=== PATIENT | female | born 1995 | race Caucasian/White ===

== ENCOUNTER 2019-02-17 17:47 | Emergency (ER) | payer BC ==
--- NOTE | 2019-02-17 20:26 | EDM.PDOC ---
ED HPI GENERAL MEDICAL PROBLEM - General Chief Complaint: Genitourinary Problem Stated Complaint: KIDNEY INFECTION NOT GETTING BETTER SENT BY [facility] Time Seen by Provider: 02/17/19 19:03 Source of Information: Reports: Patient, Significant Other (Boyfriend) History Limitations: Reports: No Limitations - History of Present Illness INITIAL COMMENTS - FREE TEXT/NARRATIVE: Ms. Valdez is a very pleasant 23-year-old woman with no significant past medical history, who states that she developed bloody, cloudy urine with dysuria , urinary frequency, and urinary urgency, about 2 weeks ago. At that time, she did not have any flank pain, fever, nausea, or vomiting. She went to the walk- in clinic, where a urinalysis apparently demonstrated a UTI, and she was prescribed an antibiotic, whose name she does not recall. The antibiotic was prescribed as one tablet twice a day for 7 days, but the patient accidentally took 2 tablets twice a day for 3-1/2 days. She states that her dysuria resolved , along with her urinary urgency and frequency, and bloody, cloudy urine. She states that this past 02/12/2019, she developed left lower flank pain , which subsequently became bilateral. She states that she returned to the walk- in clinic this past 02/14/2019, after she woke with nausea and emesis. She had body aches, chills, and was diaphoretic, although she did not have a fever. A repeat urinalysis again demonstrated a UTI, therefore she was prescribed a different antibiotic, whose name she does not recall, one tablet twice a day for 7 days. She is still on that antibiotic. She now presents to the ED stating that her left flank pain is still present. Starting today, it radiates around to her bilateral lower quadrants. She denies dysuria, urinary urgency or frequency. No gross hematuria. No chills or fever. No prior similar symptoms. The patient's PCP is RIK Damon. Treatments CRITICAL SYSTEMS TECHNICIAN: Reports: Other (see below) Other Treatments CRITICAL SYSTEMS TECHNICIAN: antibiotic Posterior Flank Pain Score (Numeric/FACES): 6 - Related Data Allergies Allergy/AdvReac Type Severity Reaction Status Date / Time benzoyl peroxide Allergy Swelling Verified 02/17/19 18:00 Home Meds: Home Meds ALPRAZolam [Alprazolam] 0.5 mg PO DAILY PRN 02/17/19 [History] Ciprofloxacin HCl [Cipro] 500 mg PO BID 02/17/19 [History] Past Medical History Psychiatric History: Reports: Anxiety, Depression Social & Family History - Tobacco Use Tobacco Use Within Last Twelve Months: Vaping (in the past) Second Hand Smoke Exposure: No - Caffeine Use Caffeine Use: Reports: Coffee - Alcohol Use Alcohol Use History: Yes Alcohol Use Frequency: Socially - Recreational Drug Use Recreational Drug Use: No - Living Situation & Occupation Living situation: Reports: Single, Other (with friends) Occupation: Employed ([employer]) ED ROS GENERAL - Review of Systems Review Of Systems: ROS reveals no pertinent complaints other than HPI. ED EXAM, RENAL/ - Physical Exam Exam: See Below Exam Limited By: No Limitations General Appearance: Alert, WD/WN, No Apparent Distress Eye Exam: Bilateral Eye: EOMI, Normal Inspection Ears: Normal External Exam, Hearing Grossly Normal Nose: Normal Inspection Throat/Mouth: Normal Inspection, Normal Lips, Normal Voice, No Airway Compromise Head: Atraumatic, Normocephalic Neck: Normal Inspection, Full Range of Motion Respiratory/Chest: No Respiratory Distress, Lungs Clear, Normal Breath Sounds, No Accessory Muscle Use Cardiovascular: Normal Peripheral Pulses, Regular Rate, Rhythm, No Edema, No Gallop, No JVD, No Murmur, No Rub GI/Abdominal: Normal Bowel Sounds, Soft, No Organomegaly, No Distention, No Abnormal Bruit, No Mass, Tender (palpation in the left upper quadrant induces left flank pain, but her abdomen itself appears to be nontender, including suprapubically) (Female) Exam: Deferred Rectal (Female) Exam: Deferred Back Exam: Normal Inspection, Full Range of Motion, CVA Tenderness (L) ( exquisite). No: CVA Tenderness (R) Extremities: Normal Inspection, Normal Range of Motion, No Pedal Edema, Normal Capillary Refill Neurological: Alert, Oriented, Normal Cognition, No Motor/Sensory Deficits Psychiatric: Normal Affect Skin Exam: Warm, Dry, Intact, Normal Color, No Rash Course - Vital Signs Last Recorded V/S: Last Vital Signs Temp 36.8 C 02/17/19 18:07 Pulse 87 02/17/19 18:07 Resp 14 02/17/19 18:07 BP 102/71 02/17/19 18:07 Pulse Ox 100 02/17/19 18:07 - Orders/Labs/Meds Orders: Active Orders 24 hr Category Date Time Status CULTURE URINE [RM] Stat Lab 02/17/19 21:58 Ordered Labs: Laboratory Tests 02/17/19 02/17/19 02/17/19 Range/Units 20:36 20:36 20:45 WBC 12.20 H (3.98-10.04) K/mm3 RBC 4.13 (3.98-5.22) M/mm3 Hgb 12.6 (11.2-15.7) gm/dl Hct 36.2 (34.1-44.9) % MCV 87.7 (79.4-94.8) fl MCH 30.5 (25.6-32.2) pg MCHC 34.8 (32.2-35.5) g/dl RDW Std Deviation 39.2 (36.4-46.3) fL Plt Count 272 (182-369) K/mm3 MPV 11.0 (9.4-12.3) fl Neutrophils % (Manual) 81 H (40-60) % Band Neutrophils % 3 (0-10) % Lymphocytes % (Manual) 11 L (20-40) % Atypical Lymphs % 0 % Monocytes % (Manual) 5 (2-10) % Eosinophils % (Manual) 0 L (0.7-5.8) % Basophils % (Manual) 0 L (0.1-1.2) Platelet Estimate Adequate RBC Morph Comment Normal Sodium 135 L (136-145) mEq/L Potassium 3.3 L (3.5-5.1) mEq/L Chloride 97 L (98-107) mEq/L Carbon Dioxide 26 (21-32) mEq/L Anion Gap 15.3 H (5-15) BUN 8 (7-18) mg/dL Creatinine 0.9 (0.55-1.02) mg/dL Est Cr Clr Drug Dosing 84.67 mL/min Estimated GFR (MDRD) > 60 (>60) mL/min BUN/Creatinine Ratio 8.9 L (14-18) Glucose 94 (74-106) mg/dL Calcium 9.4 (8.5-10.1) mg/dL Total Bilirubin 0.4 (0.2-1.0) mg/dL AST 9 L (15-37) U/L ALT 17 (14-59) U/L Alkaline Phosphatase 78 (46-116) U/L Total Protein 7.8 (6.4-8.2) g/dl Albumin 3.6 (3.4-5.0) g/dl Globulin 4.2 gm/dL Albumin/Globulin Ratio 0.9 L (1-2) Urine Color (Yellow) Urine Appearance (Clear) Urine pH (5.0-8.0) Ur Specific [place] (1.005-1.030) Urine Protein (Negative) Urine Glucose (UA) (Negative) Urine Ketones (Negative) Urine Occult Blood (Negative) Urine Nitrite (Negative) Urine Bilirubin (Negative) Urine Urobilinogen (0.2-1.0) Ur Leukocyte Esterase (Negative) Urine RBC (0-5) /hpf Urine WBC (0-5) /hpf Ur Squamous Epith Cells (0-5) /hpf Urine Bacteria (FEW) /hpf Urine Mucus (FEW) /hpf Urine HCG, Qual Negative (NEGATIVE) 02/17/19 Range/Units 20:49 WBC (3.98-10.04) K/mm3 RBC (3.98-5.22) M/mm3 Hgb (11.2-15.7) gm/dl Hct (34.1-44.9) % MCV (79.4-94.8) fl MCH (25.6-32.2) pg MCHC (32.2-35.5) g/dl RDW Std Deviation (36.4-46.3) fL Plt Count (182-369) K/mm3 MPV (9.4-12.3) fl Neutrophils % (Manual) (40-60) % Band Neutrophils % (0-10) % Lymphocytes % (Manual) (20-40) % Atypical Lymphs % % Monocytes % (Manual) (2-10) % Eosinophils % (Manual) (0.7-5.8) % Basophils % (Manual) (0.1-1.2) Platelet Estimate RBC Morph Comment Sodium (136-145) mEq/L Potassium (3.5-5.1) mEq/L Chloride (98-107) mEq/L Carbon Dioxide (21-32) mEq/L Anion Gap (5-15) BUN (7-18) mg/dL Creatinine (0.55-1.02) mg/dL Est Cr Clr Drug Dosing mL/min Estimated GFR (MDRD) (>60) mL/min BUN/Creatinine Ratio (14-18) Glucose (74-106) mg/dL Calcium (8.5-10.1) mg/dL Total Bilirubin (0.2-1.0) mg/dL AST (15-37) U/L ALT (14-59) U/L Alkaline Phosphatase (46-116) U/L Total Protein (6.4-8.2) g/dl Albumin (3.4-5.0) g/dl Globulin gm/dL Albumin/Globulin Ratio (1-2) Urine Color Yellow (Yellow) Urine Appearance Clear (Clear) Urine pH 7.0 (5.0-8.0) Ur Specific [place] 1.015 (1.005-1.030) Urine Protein Negative (Negative) Urine Glucose (UA) Negative (Negative) Urine Ketones 2+ H (Negative) Urine Occult Blood Negative (Negative) Urine Nitrite Negative (Negative) Urine Bilirubin Negative (Negative) Urine Urobilinogen 1.0 (0.2-1.0) Ur Leukocyte Esterase 1+ H (Negative) Urine RBC 0-5 (0-5) /hpf Urine WBC 5-10 H (0-5) /hpf Ur Squamous Epith Cells 0-5 (0-5) /hpf Urine Bacteria Occasional (FEW) /hpf Urine Mucus Few (FEW) /hpf Urine HCG, Qual (NEGATIVE) - Re-Assessments/Exams Free Text/Narrative Re-Assessment/Exam: 02/17/19 20:21 We are endeavoring to get medical records from the [facility], and the patient's boyfriend has gone home to get whatever paperwork he can find. At this time, it sounds like the patient initially had simple cystitis, which may have been adequately treated, possibly because of her taking the initial antibiotic improperly, or, possibly because the UTI organism was resistant to the initial antibiotic. At any rate, it sounds like the patient subsequently developed pyelonephritis. I suspect that he second antibiotic is ciprofloxacin, which would be an appropriate antibiotic, unless a urine culture dictated otherwise, that would explain why the majority of her symptoms have resolved, but she still has left flank pain and tenderness. If that is the case, the proper treatment is to read the 7 day course of ciprofloxacin, and no change in antibiotics would be indicated. While we are waiting for additional [facility] information, I have ordered a CBC, CMP, urinalysis by clean catch, and a urine test. I don't see an indication for a CT scan of her abdomen and pelvis, for while it might confirm that the patient has left-sided pyelonephritis, I don't suspect an abscess, since she is afebrile. 02/17/19 21:33 Information acquired from [facility] reflects that the patient was initially seen on 02/01/2019, treated with nitrofurantoin 1 tab po BID x 7 days, but, as the patient reported, she took 2 tabs po BID x 3.5 days. The urine culture grew >100,000 CFU/ml Escherichia coli, but susceptibility is not reported. Because nitrofurantoin is bacteriostatic, her taking it for only 3.5 days likely inadequately treated her UTI. She then returned to the walk-in clinic on Friday , 02/14/2019, where a repeat urinalysis reflected a UTI. She was then prescribed ciprofloxacin 500 mg po BID x 7 days, that she is still on. The urine culture from 02/14/2019 is also growing >100,000 CFU/ml Escherichia coli, but again, susceptibility is not reported. The patient's CBC is remarkable for WBC count mildly elevated at 12.20, with 3% bandemia. The remainder of her CBC is unremarkable. Her CMP is remarkable for sodium at the lower limits of normal of 135, and a potassium slightly depressed at 3.3. Chloride is 97. Her bicarbonate is normal, and the remainder of her CMP is unremarkable. Her urinalysis is remarkable for negative occult blood with 05 RBCs, 1+ leukocyte esterase with 5-10 WBCs, nitrate negative with occasional bacteria, and 0-5 epithelial cells. I suspect that the patient is suffering from left pyelonephritis, but her current treatment with ciprofloxacin is appropriate, and I'm not recommending any changes. Although we do not have susceptibility from either of her earlier cultures, because her symptoms are improving, ciprofloxacin appears to be an appropriate antibiotic choice. Because the patient is afebrile and hemodynamically stable, I believe she can safely be discharged home. I do not see an indication for starting on IV antibiotics or admitting her to the hospital. Should her symptoms worsen, I would like her to return to the ED for reevaluation. I have ordered a urine culture, and I notified the lab that the patient is already on ciprofloxacin. My expectation is that the urine culture will not grow anything. 02/17/19 21:47 The above was discussed with the patient and her boyfriend. I will discharge her home with the recommendation that she finish the ciprofloxacin as prescribed , then follow-up with her PCP next 02/22/2019. Departure - Departure Time of Disposition: 21:53 Disposition: Home, Self-Care 01 Condition: Good Clinical Impression: Pyelonephritis of left kidney - Discharge Information *PRESCRIPTION DRUG MONITORING PROGRAM REVIEWED*: Not Applicable *COPY OF PRESCRIPTION DRUG MONITORING REPORT IN PATIENT SHANTANU: Not Applicable Instructions: Pyelonephritis, Adult, [id number] Referrals: Ivone Hernandez PA-C [Primary Care Provider] - Forms: ED Department Discharge Additional Instructions: You were seen in the emergency room for continued left flank pain after being diagnosed with a urinary tract infection on 02/01/2019 and 02/14/2019. Workup in the ER included blood work, a urinalysis, and a urine test. Office notes from [facility] were obtained. It appears that you were initially diagnosed with a UTI on 02/01/2019 and prescribed nitrofurantoin, however, he took a double dose of nitrofurantoin for half the prescribed time, leading to an inadequately treated urinary tract infection. The urinary tract infection then spread to your left kidney. He was started on ciprofloxacin on 02/14/2019, which is the correct antibiotic, but you need to finish the prescription. You may take [id number] ibuprofen, 3 tablets (600 mg) every 8 hours, with food, as needed for discomfort. We recommend that you follow-up with your PCP, RIK Damon, on Friday, 2018. If your symptoms worsen, please do not hesitate to return to the ER. - My Orders Last 24 Hours: My Active Orders 02/17/19 21:58 CULTURE URINE [RM] Stat - Assessment/Plan Last 24 Hours: My Active Orders 02/17/19 21:58 CULTURE URINE [RM] Stat
== END 2019-02-17 22:06 | disposition home or self-care (01) ==
LOC: JD.ED 17:47
DX: N12 Tubulo-interstitial nephritis, not specified as acute or chronic (principal); F41.9 Anxiety disorder, unspecified; F32.9 Major depressive disorder, single episode, unspecified; Z88.8 Allergy status to other drugs, medicaments and biological substances; Z79.899 Other long term (current) drug therapy
CPT/HCPCS: 36415; 80053; 81001; 81025; 85007; 85027; 87086; 99282; 99283

== ENCOUNTER 2024-04-05 14:47 | Inpatient (IN) | payer BC ==
[2024-04-05] MEDS ORDERED: Lidocaine 1% 50 ML MDV INJECT PRN (14:55)
[2024-04-05] MEDS ORDERED: Nalbuphine 10 MG/1 ML Vial IVPUSH PRN (14:55)
[2024-04-05] MEDS ORDERED: Ondansetron 4 MG/2 ML SDV IVPUSH PRN (14:55)
[2024-04-05] MEDS ORDERED: Sodium Chloride 0.9% 10 ML Syringe FLUSH PRN (14:55)
[2024-04-05] MEDS ORDERED: Oxytocin/0.9 % Sodium Chloride 30 UNIT/500 ML BAG IV SCH ×2 (15:00)
[2024-04-05] MEDS ORDERED: Penicillin G Potassium 5 MILLUNITS in Sodium Chloride 0.9% 100 ML IV SCH (15:30)
[2024-04-05 15:34] LABS: BASOPHILS ABSOLUTE AUTO 0.1 K/mm3 (0.0-0.2); BASOPHILS PERCENT AUTO 0.4 % (0.0-1.0); EOSINOPHILS ABSOLUTE AUTO 0.1 K/mm3 (0.0-0.4); EOSINOPHILS PERCENT AUTO 0.6 % (0.0-6.0); HEMATOCRIT 34.7 % (37.0-47.0); HEMOGLOBIN 11.8 gm/dl (12.0-16.0); IMMATURE GRAN ABSOLUTE AUTO 0.09 K/mm3 (0.00-0.05); IMMATURE GRAN PERCENT AUTO 0.6 % (0.0-0.4); LYMPHOCYTES ABSOLUTE AUTO 1.6 K/mm3 (1.0-4.8); LYMPHOCYTES PERCENT AUTO 10.2 % (24.0-44.0); MEAN CORPUSCULAR HEMOGLOBIN 29.8 pg (28.0-32.0); MEAN CORPUSCULAR VOLUME 87.6 fl (83.0-99.0); MEAN PLATELET VOLUME 12.1 fl (9.4-12.3); MONOCYTES ABSOLUTE AUTO 0.9 K/mm3 (0.0-0.8); MONOCYTES PERCENT AUTO 5.7 % (0.0-8.0); NEUTROPHILS ABSOLUTE AUTO 13.2 K/mm3 (1.8-7.7); NEUTROPHILS PERCENT AUTO 82.5 % (41.0-71.0); PLATELET COUNT,PLT 215 K/mm3 (150-400); RED BLOOD CELL COUNT 3.96 M/mm3 (4.10-5.30); WHITE BLOOD CELL COUNT,WBC 16.02 K/mm3 (3.9-11.3)
[2024-04-05] MEDS: Misoprostol 25 MCG (1/4 of 100 MCG) Tab VAG PRN (16:00)
[2024-04-05] MEDS: Calcium Carbonate 500 MG Tab.Chew PO PRN (18:09)
[2024-04-05] MEDS ORDERED: Penicillin G Potassium 2.5 MILLUNITS in Sodium Chloride 0.9% 100 ML IV SCH (19:30)
[2024-04-05] MEDS: Misoprostol 25 MCG (1/4 of 100 MCG) Tab PO ONE (20:16)
[2024-04-06] MEDS: Lactated Ringers 1,000 ML IV SCH (00:39)
[2024-04-06] MEDS: Penicillin G Potassium 5 MILLUNITS in Sodium Chloride 0.9% 100 ML IV SCH (00:43)
[2024-04-06 01:35] LABS: APPEARANCE,URINE CLEAR (Clear); BILIRUBIN,URINE NEGATIVE (Negative); COLOR,URINE LIGHT YELLOW (Yellow); GLUCOSE,URINE NEGATIVE (Negative); KETONES,URINE NEGATIVE (Negative); LEUKOCYTE ESTERASE,URINE NEGATIVE (Negative); NITRITE,URINE NEGATIVE (Negative); OCCULT BLOOD,URINE NEGATIVE (Negative); PROTEIN,URINE NEGATIVE (Negative); UROBILINOGEN,URINE 0.2 (0.2-1.0)
[2024-04-06] MEDS: Citric Acid/Sodium Citrate Solution 30 ML Cup ONE (04:24)
[2024-04-06] MEDS: Metoclopramide 10 MG/2 ML SDV ONE (04:25)
[2024-04-06] MEDS ORDERED: Morphine PF 10 MG/10 ML SDV ONE (04:26)
[2024-04-06] MEDS ORDERED: Phenylephrine 1% 10 MG/ML SDV ONE (04:32)
[2024-04-06] MEDS ORDERED: ceFAZolin 2 GM Vial ONE (04:32)
[2024-04-06] MEDS ORDERED: Ondansetron 4 MG/2 ML SDV ONE (04:32)
[2024-04-06] MEDS ORDERED: Sodium Chloride 0.9% 10 ML Syringe FLUSH PRN (04:39)
[2024-04-06] MEDS ORDERED: dexmedeTOMIDine HCl 200 MCG/2 ML SDV ONE (05:00)
[2024-04-06] MEDS ORDERED: Lactated Ringers 1,000 ML ONE (05:16)
[2024-04-06] MEDS ORDERED: Ketorolac 30 MG/ML SDV ONE (05:19)
[2024-04-06] MEDS ORDERED: Ondansetron 4 MG/2 ML SDV IVPUSH PRN (05:30)
[2024-04-06] MEDS ORDERED: fentaNYL 100 MCG/2 ML SDV IVPUSH PRN (05:30)
[2024-04-06] MEDS ORDERED: Meperidine 50 MG/ML Vial IVPUSH PRN (05:30)
[2024-04-06] MEDS ORDERED: diphenhydrAMINE 50 MG/ML SDV IVPUSH PRN ×2 (05:30→06:20)
[2024-04-06] MEDS ORDERED: ePHEDrine 50 MG/ML SDV IVPUSH PRN (06:20)
[2024-04-06] MEDS ORDERED: Naloxone 0.4 MG/ML SDV IVPUSH PRN (06:20)
[2024-04-06] MEDS ORDERED: oxyCODONE 5 MG Tab PO PRN (06:20)
[2024-04-06] MEDS ORDERED: Dextrose 5%-Lactated Ringers 1,000 ML IV SCH (06:30)
[2024-04-06] MEDS: ceFAZolin 2 GM in Sodium Chloride 0.9% 50 ML IV ONE (08:34)
[2024-04-06] MEDS: Penicillin G Potassium 2.5 MILLUNITS in Sodium Chloride 0.9% 100 ML IV SCH (08:34)
[2024-04-06] MEDS: Terbutaline 1 MG/ML SDV SUBCUT ONE (08:35)
[2024-04-06] MEDS: Ibuprofen 800 MG Tab PO SCH ×2 (08:36→13:01)
[2024-04-06] MEDS: Acetaminophen 325 MG Tab PO SCH (08:50)
[2024-04-06] MEDS: Prenatal Multivitamin with Calcium/Folic Acid/Iron Tab PO SCH (09:38)
[2024-04-06] MEDS: Docusate Sodium 100 MG Cap PO SCH (09:38)
[2024-04-06] MEDS: Sodium Chloride 0.9% 10 ML Syringe FLUSH SCH (14:08)
[2024-04-06] MEDS: Simethicone 80 MG Tab.Chew PO PRN (21:31)
[2024-04-07 05:34] LABS: HEMOGLOBIN 10.9 gm/dl (12.0-16.0); MEAN CORPUSCULAR HEMOGLOBIN 30.2 pg (28.0-32.0); MEAN CORPUSCULAR HGB CONC 35.2 g/dl (32.0-36.0); MEAN CORPUSCULAR VOLUME 85.9 fl (83.0-99.0); MEAN PLATELET VOLUME 12.2 fl (9.4-12.3); PLATELET COUNT,PLT 171 K/mm3 (150-400); RED BLOOD CELL COUNT 3.61 M/mm3 (4.10-5.30); WHITE BLOOD CELL COUNT,WBC 11.13 K/mm3 (3.9-11.3)
== END 2024-04-08 20:40 | disposition home or self-care (01) | DRG 540 ==
LOC: JD.OBCHECK 14:47 → JD.OB 14:48 → JD.OBCHECK 14:55 → JD.OB 14:55 → OBSVTOIN 04-06 05:06 → JD.OB 04-06 05:07
PROVIDERS: ADMIT Family Medicine; ATTEND Family Medicine
PROC: 10D00Z1 Extraction of Products of Conception, Low, Open Approach (ICD-10-PCS; principal; 2024-04-06 05:00)
DX: O36.5930 Maternal care for other known or suspected poor fetal growth, third trimester, not applicable or unspecified (principal); Z3A.37 37 weeks gestation of pregnancy; Z37.0 Single live birth; O99.824 Streptococcus B carrier state complicating childbirth; O76 Abnormality in fetal heart rate and rhythm complicating labor and delivery; O69.81X0 Labor and delivery complicated by cord around neck, without compression, not applicable or unspecified
CPT/HCPCS: 01961; 36415; 59025; 76816; 76819; 76819-26; 76820; 76820-26; 81003; 85025; 85027; 86592; 86850; 86900; 86901; 94762; 99140; A9270-GY; J0690; J1885; J2274; J2371; J2405; J2540; J2765; J3490; J7120